=== PATIENT | male | born 1955 | race Caucasian/White ===

== ENCOUNTER 2019-02-14 13:07 | Outpatient (CLI) | payer BC ==
--- NOTE | 2019-02-14 13:35 | RAD ---
EXAM: Left Rib series HISTORY: Left-sided rib pain after fall COMPARISON: None FINDINGS: Multiple views of the left ribs shows no evidence of displaced rib fracture. No underlying pleural th ickening or pneumothorax are seen. IMPRESSION: 1. No evidence of displaced rib fracture.
== END 2019-02-14 13:08 | disposition home or self-care (01) ==
LOC: BURRAD 13:07
PROVIDERS: ATTEND Family Medicine
DX: R07.81 Pleurodynia (principal)